=== PATIENT | female | born 1990 | race Hispanic/Latino ===

== ENCOUNTER 2018-03-01 15:37 | Emergency (ER) | payer OTHER, MEDICAID, SELFPAY ==
[2018-03-01 15:46] VITALS: BP 120/68; PULSE 80; RESP 18; TEMP 36.2; O2SAT 98; BMI 29.8
--- NOTE | 2018-03-01 16:42 | ED_ITS ---
HPI - Abdominal Pain <Roxanne Graham PA-C - Last Filed: 03/01/18 21:43> General Chief Complaint: Abdominal Pain Stated Complaint: BLEEDING Time Seen by Provider: 03/01/18 16:39 Source: patient Mode of arrival: ambulatory Limitations: no limitations History of Present Illness HPI narrative: This 27-year-old female comes in due to vaginal bleeding and abdominal pain today. She states that LMP was 01/21. She had positive tests at home on Sunday and Sunday. She states that she had some slight spotting yesterday which she thought was normal, but this became heavier last night and states blood was running down her leg this morning. No clots. She states bleeding has been about the same today. She states that along with this she has had pain in the pelvic area that is persistent, also some on her left side without specific exacerbating or alleviating features. She feels like the abdominal pain radiates to her back. She denies any vomiting or nausea , but states she has no appetite today and has not eaten. She denies any fever , urinary symptoms, or STD concerns. She denies any chest pain, dyspnea, extremity swelling or other new complaints on systems review aside from some increased constipation in the last 4 days though she did have a bowel movement yesterday. Related Data Home Medications Medication Instructions Recorded Confirmed No Known Home Medications 03/01/18 03/01/18 Allergies Allergy/AdvReac Type Severity Reaction Status Date / Time No Known Allergies Allergy Uncoded 03/01/18 15:55 Review of Systems <Roxanne Graham PA-C - Last Filed: 03/01/18 21:43> Review of Systems All systems reviewed & are unremarkable except as noted in HPI and below PFSH <Roxanne Graham PA-C - Last Filed: 03/01/18 21:43> Comment: no EtOH or street drugs Exam <ABHILASH Cage Last Filed: 03/01/18 21:43> Narrative Exam Narrative: GENERAL APPEARANCE: Patient sitting comfortably, in no distress. HEENT: PERRL, EOMI, no scleral icterus NECK: Supple LUNGS: Clear to auscultation bilaterally. HEART: Rate and rhythm regular, normal S1 and S2, no S3 or S4. ABDOMEN: Soft, nondistended, bowel sounds present x 4 quadrants, no masses palpable, no hepatosplenomegaly. Mild tenderness over the lower midline to left lower quadrants, moderate left CVAT. more tenderness over the suprapubic region without guarding or rebound EXTREMITIES: No edema, no cyanosis DERMATOLOGIC: No jaundice or exanthem : normal external genitalia. Normal appearing parous os, closed, with moderate dark blood and a few clots. On bimanual exam, she has localized tenderness over the left adnexa, no CMT NEUROLOGIC: Alert and oriented with normal speech and coordination Initial Vital Signs Initial Vital Signs: Vital Signs Temperature 97.2 F L 03/01/18 15:46 Pulse Rate 80 03/01/18 15:46 Respiratory Rate 18 03/01/18 15:46 Blood Pressure 120/68 03/01/18 15:46 Pulse Oximetry 98 03/01/18 15:46 <Madhavi Schrader DO - Last Filed: 03/03/18 08:10> Initial Vital Signs Initial Vital Signs: Vital Signs Temperature 97.2 F L 03/01/18 15:46 Pulse Rate 80 03/01/18 15:46 Respiratory Rate 18 03/01/18 15:46 Blood Pressure 120/68 03/01/18 15:46 Pulse Oximetry 98 03/01/18 15:46 Course <Roxanne Graham PA-C - Last Filed: 03/01/18 21:43> Additional Information: reviewed findings of negative testing, ovarian cyst on ultrasound correlating to pelvic tenderness on exam. She is feeling somewhat improved after ibuprofen, so will continue this at home and monitor over the weekend. 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 for follow-up appointment Orders Ordered: Discontinued Medications Ibuprofen (Advil) 800 mg PO NOW ONE Stop: 03/01/18 17:20 Last Admin: 03/01/18 17:25 Dose: 800 mg Vital Signs - 8 hr 03/01/18 15:46 03/01/18 17:42 03/01/18 18:57 Temperature 97.2 F L 98.0 F 97.5 F L Pulse Rate 80 84 80 Respiratory Rate 18 16 18 Blood Pressure 120/68 Blood Pressure [Left Arm] 128/66 139/72 Pulse Oximetry 98 100 100 <DO Hilary Ruiz Last Filed: 03/03/18 08:10> Orders Ordered: Discontinued Medications Ibuprofen (Advil) 800 mg PO NOW ONE Stop: 03/01/18 17:20 Last Admin: 03/01/18 17:25 Dose: 800 mg Vital Signs - 8 hr 03/01/18 15:46 03/01/18 17:42 03/01/18 18:57 Temperature 97.2 F L 98.0 F 97.5 F L Pulse Rate 80 84 80 Respiratory Rate 18 16 18 Blood Pressure 120/68 Blood Pressure [Left Arm] 128/66 139/72 Pulse Oximetry 98 100 100 MDM - Abdominal Pain <Roxanne Graham PA-C - Last Filed: 03/01/18 21:43> Lab Data Attestation: I reviewed the patient's lab results. Result diagrams: 03/01/18 17:27 03/01/18 17:27 Lab Results 03/01/18 03/01/18 03/01/18 Range/Units 17:27 17:27 17:27 WBC 7.6 (4.5-11.0) X10^3/uL RBC 4.42 (4.0-5.2) X10^6/uL Hgb 11.4 L (12.0-16.0) g/dL Hct 34.8 L (36-46) % MCV 78.6 L (80-100) fL MCH 25.7 L (26-34) PG MCHC 32.7 (30-36) % RDW 14.8 (11.6-14.8) % Plt Count 306 (150-400) X10^3/uL Neut % (Auto) 57.2 (50-75) % Lymph % (Auto) 35.0 (25-40) % [place] % (Auto) 6.2 (3-14) % Eos % (Auto) 1.3 L (2-4) % Baso % (Auto) 0.3 (0-2) % Neut # (Auto) 4300 (4024-9791) /uL Sodium 141 (137-145) mmol/L Potassium 4.2 (3.4-5.1) mmol/L Chloride 103 (98-107) mmol/L Carbon Dioxide 26 (22-32) mmol/L BUN 13 (7-17) mg/dL Creatinine 0.60 (0.52-1.04) mg/dL Estimated GFR > 60.0 (>60) mL/min BUN/Creatinine Ratio 21.7 (6-22) Glucose 99 (70-100) mg/dL Calcium 9.4 (8.4-10.2) mg/dL Total Bilirubin 0.2 (0.2-1.3) mg/dL AST 18 (14-36) IU/L ALT 25 (9-52) IU/L Alkaline Phosphatase 97 (38-126) U/L Total Protein 8.5 H (6.3-8.2) g/dL Albumin 4.6 (3.5-5.0) g/dL Globulin 3.9 (1.7-4.1) g/dL Albumin/Globulin Ratio 1.2 (1.0-2.8) Lipase 54 (23-300) U/L HCG, Quant < 2.39 mIU/mL Point of care testing: Point of Care Testing Test Results Negative Urine Dip Bedside Urine Glucose Negative Bedside Urine Bilirubin - Negative Bedside Urine Ketone - Negative Urine Specific [place] 1.020 Bedside Urine Occult Blood ++ Bedside Urine pH 6.0 Bedside Urine Protein - Negative Bedside Urine Urobilinogen - Negative Bedside Urine Nitrite - Negative Bedside Urine Leukocytes - Negative Esterase Imaging Data pelvic: Radiologist's impression: [address] [address] Ultrasound Report Signed Patient: Brennon Arellano#: [id number] : 1990Acct:[id number] Age/Sex: 27 / FDate of Service: 03/01/18 Loc: ED Accession Number: [id number] Procedure: pelvic complete Ordering Provider: Roxanne Graham P.A-C PROCEDURE: US PELVIC COMPLETE INDICATIONS: PAIN, BLEEDING; POSITIVE HOME TEST TECHNIQUE: Real-time scanning was performed of the pelvic organs, with image documentation. Additional endovaginal scanning was necessary due to incomplete visualization of the adnexal and endometrial structures by transabdominal scanning. COMPARISON: [facility], PELVIC COMPLETE, 04/27/2010, 14:55. FINDINGS: Transabdominal scanning: Limited scanning through the kidneys shows no hydronephrosis. No pathologic free abdominal or pelvic fluid. Endovaginal scanning: Uterus: Uterus is normal in size at 9.3 x 5.0 x 6.4 cm. The endometrium measures 9 mm in combined thickness. Ovaries: Right ovary measures 3.2 x 1.5 1.9 cm and is unremarkable. Left ovary measures 3.4 x 2.0 x 2.2 cm and there is a complex cystic lesion measuring 1.7 x 1.4 x 1.3 cm with internal echoes, presumably hemorrhagic or involuting physiologic cyst. IMPRESSION: No definite intrauterine identified. Technically, early IUP or ectopic cannot be excluded at this time. Please correlate clinically and with serial beta hCG values and if necessary, a repeat pelvic ultrasound one week could be performed. Presumed physiologic hemorrhagic or involuting left ovarian cyst Dictated by: Abhijeet Martinez M.D. on 03/01/2018 at 18:36 Approved by: Abhijeet Martinez M.D. on 03/01/2018 at <Madhavi Schrader DO - Last Filed: 03/03/18 08:10> Lab Data Lab Results 03/01/18 03/01/18 03/01/18 Range/Units 17:27 17:27 17:27 WBC 7.6 (4.5-11.0) X10^3/uL RBC 4.42 (4.0-5.2) X10^6/uL Hgb 11.4 L (12.0-16.0) g/dL Hct 34.8 L (36-46) % MCV 78.6 L (80-100) fL MCH 25.7 L (26-34) PG MCHC 32.7 (30-36) % RDW 14.8 (11.6-14.8) % Plt Count 306 (150-400) X10^3/uL Neut % (Auto) 57.2 (50-75) % Lymph % (Auto) 35.0 (25-40) % [place] % (Auto) 6.2 (3-14) % Eos % (Auto) 1.3 L (2-4) % Baso % (Auto) 0.3 (0-2) % Neut # (Auto) 4300 (5043-6243) /uL Sodium 141 (137-145) mmol/L Potassium 4.2 (3.4-5.1) mmol/L Chloride 103 (98-107) mmol/L Carbon Dioxide 26 (22-32) mmol/L BUN 13 (7-17) mg/dL Creatinine 0.60 (0.52-1.04) mg/dL Estimated GFR > 60.0 (>60) mL/min BUN/Creatinine Ratio 21.7 (6-22) Glucose 99 (70-100) mg/dL Calcium 9.4 (8.4-10.2) mg/dL Total Bilirubin 0.2 (0.2-1.3) mg/dL AST 18 (14-36) IU/L ALT 25 (9-52) IU/L Alkaline Phosphatase 97 (38-126) U/L Total Protein 8.5 H (6.3-8.2) g/dL Albumin 4.6 (3.5-5.0) g/dL Globulin 3.9 (1.7-4.1) g/dL Albumin/Globulin Ratio 1.2 (1.0-2.8) Lipase 54 (23-300) U/L HCG, Quant < 2.39 mIU/mL Point of care testing: Point of Care Testing Test Results Negative Urine Dip Bedside Urine Glucose Negative Bedside Urine Bilirubin - Negative Bedside Urine Ketone - Negative Urine Specific [place] 1.020 Bedside Urine Occult Blood ++ Bedside Urine pH 6.0 Bedside Urine Protein - Negative Bedside Urine Urobilinogen - Negative Bedside Urine Nitrite - Negative Bedside Urine Leukocytes - Negative Esterase Discharge Plan Departure Patient Disposition: Home Clinical Impression: Ovarian cyst, Complete miscarriage Discharge Date/Time: 03/01/18 19:10 Interventions: ED Discharge Assessment Last Done: 03/01/18 19:10 Instructions: DI for Miscarriage, DI for Ovarian Cyst Activity Restrictions/Additional Instructions: the source of your left-sided pain appears to be an ovarian cyst which is visible on your ultrasound and the site where you are tender on exam. Please continue 800 mg of ibuprofen (for of your [id number]-srhhsxe tablets) every 8 hr for pain, and you can also add Tylenol as needed. Your blood and urine tests were negative here today, but given your positive home tests earlier this week, it sounds like you may have had a very early miscarriage as well. You should return as we talked about if you have any acutely worsening pain, or new symptoms such as vomiting or fever over the weekend. Otherwise, please call [facility] on Sunday to arrange for follow up so that your cyst and pain can be monitored. Let them know that we referred you after emergency room visit Prescriptions: No Action No Known Home Medications RF: 0 Referrals: Hyacinth Foster MD [Physician] - <Madhavi Schrader DO - Last Filed: 03/03/18 08:10> Cosign ED Attending Cosignature Attestation: I was immediately available in the department for consultation. This documentation has been reviewed and I agree with plan. Supervised by Madhavi Schrader DO
--- NOTE | 2018-03-01 17:19 | DI.US.S_ITS ---
PROCEDURE: US PELVIC COMPLETE INDICATIONS: PAIN, BLEEDING; POSITIVE HOME TEST TECHNIQUE: Real-time scanning was performed of the pelvic organs, with image documentation. Additional endovaginal scanning was necessary due to incomplete visualization of the adnexal and endometrial structures by transabdominal scanning. COMPARISON: [facility], , PELVIC COMPLETE, 04/27/2010, 14:55. FINDINGS: Transabdominal scanning: Limited scanning through the kidneys shows no hydronephrosis. No pathologic free abdominal or pelvic fluid. Endovaginal scanning: Uterus: Uterus is normal in size at 9.3 x 5.0 x 6.4 cm. The endometrium measures 9 mm in combined thickness. Ovaries: Right ovary measures 3.2 x 1.5 1.9 cm and is unremarkable. Left ovary measures 3.4 x 2.0 x 2.2 cm and there is a complex cystic lesion measuring 1.7 x 1.4 x 1.3 cm with internal echoes, presumably hemorrhagic or involuting physiologic cyst. IMPRESSION: No definite intrauterine identified. Technically, early IUP or ectopic cannot be excluded at this time. Please correlate clinically and with serial beta hCG values and if necessary, a repeat pelvic ultrasound one week could be performed. Presumed physiologic hemorrhagic or involuting left ovarian cyst Dictated by: Abhijeet Martinez M.D. on 03/01/2018 at 18:36 Approved by: Abhijeet Martinez M.D. on 03/01/2018 at 18:44
[2018-03-01] MEDS: IBUPROFEN 400 MG TABLET 800 MG PO (17:25)
[2018-03-01 17:34] LABS: Add Manual Diff / Slide Review NO; Basophils Percent Auto 0.3 % (0-2); Eosinophils Percent Auto 1.3 % (2-4); Hematocrit 34.8 % (36-46); Hemoglobin 11.4 g/dL (12.0-16.0); Mean Corpuscular HGB Conc 32.7 % (30-36); Mean Corpuscular Hemoglobin 25.7 PG (26-34); Mean Corpuscular Volume 78.6 fL (80-100); Monocytes Percent Auto 6.2 % (3-14); Neutrophils Absolute Auto 4300 /uL (3000-5900); Neutrophils Percent Auto 57.2 % (50-75); Platelet Count 306 X10^3/uL (150-400); Red Blood Cell Count 4.42 X10^6/uL (4.0-5.2); Red Cell Distribution Width 14.8 % (11.6-14.8); White Blood Cell Count 7.6 X10^3/uL (4.5-11.0)
[2018-03-01 17:42] VITALS: BP 128/66; PULSE 84; RESP 16; TEMP 36.7; O2SAT 100
[2018-03-01 17:47] LABS: Alanine Aminotransferase 25 IU/L (9-52); Albumin 4.6 g/dL (3.5-5.0); Albumin Globulin Ratio 1.2 (1.0-2.8); Alkaline Phosphatase 97 U/L (38-126); Aspartate Aminotransferase 18 IU/L (14-36); BUN Creatinine Ratio 21.7 (6-22); Bilirubin Total 0.2 mg/dL (0.2-1.3); Blood Urea Nitrogen 13 mg/dL (7-17); Calcium 9.4 mg/dL (8.4-10.2); Carbon Dioxide 26 mmol/L (22-32); Chloride 103 mmol/L (98-107); Estimated Glomerular Filt Rate > 60.0 mL/min (>60); Globulin 3.9 g/dL (1.7-4.1); Glucose 99 mg/dL (70-100); HEMOLYSIS < 15 (0-50); Lipase 54 U/L (23-300); Potassium 4.2 mmol/L (3.4-5.1); Sodium 141 mmol/L (137-145); Total Protein 8.5 g/dL (6.3-8.2)
[2018-03-01 18:15] LABS: HCG Quantitative /Beta subunit < 2.39 mIU/mL
[2018-03-01 18:57] VITALS: BP 139/72; PULSE 80; RESP 18; TEMP 36.4; O2SAT 100
== END 2018-03-01 19:10 | disposition home or self-care (01) ==
PROVIDERS: Emergency Provider Internal Medicine; Family Provider Family Medicine; PCP Family Medicine
DX: N83.202 Unspecified ovarian cyst, left side (principal); O03.9 Complete or unspecified spontaneous abortion without complication
CPT/HCPCS: 76830; 76856; 80053; 81003; 81025; 83690; 84702; 85025; 99283; 99284

== ENCOUNTER → 2019-09-12 14:30 | Outpatient (CLI) | payer OTHER, MEDICAID, SELFPAY ==
[2019-09-12 15:11] LABS: Add Manual Diff / Slide Review NO; Basophils Absolute Auto 0 /uL (0-100); Eosinophils Absolute Auto 0 /uL (0-450); Eosinophils Percent Auto 0.5 % (2-4); Hematocrit 34.8 % (36-46); Hemoglobin 11.2 g/dL (12.0-16.0); Lymphocytes Absolute Auto 1900 /uL (1100-4500); Lymphocytes Percent Auto 29.9 % (25-40); Mean Corpuscular HGB Conc 32.2 % (30-36); Mean Corpuscular Hemoglobin 25.9 PG (26-34); Mean Corpuscular Volume 80.5 fL (80-100); Monocytes Absolute Auto 500 /uL (0-900); Monocytes Percent Auto 7.2 % (3-14); Neutrophils Absolute Auto 4100 /uL (1500-7000); Neutrophils Percent Auto 62.4 % (50-75); Platelet Count 261 X10^3/uL (150-400); Red Blood Cell Count 4.32 X10^6/uL (4.0-5.2); Red Cell Distribution Width 13.5 % (11.6-14.8); White Blood Cell Count 6.5 X10^3/uL (4.5-11.0)
[2019-09-12 15:31] LABS: Cholesterol 282 mg/dL (140-199); HDL Cholesterol 66 mg/dL (40-60); LDL Cholesterol Calculated 161 mg/dL (<100); Triglycerides 274 mg/dL (35-150)
[2019-09-12 21:04] LABS: Urine N gonorrhoeae NOT DETECTED
[2019-09-12 21:09] LABS: Urine Chlamydia NOT DETECTED
[2019-09-13 16:07] LABS: RPR Screen Non Reactive (Non Reactive); Varicella IgG Antibody <135 index (Immune >165)
[2019-09-15 21:30] LABS: Hepatitis B Surface Antigen NEGATIVE s/c (NEGATIVE); Rubella Antibody IgG 43.4 IU/mL (>15)
[2019-09-15 21:45] LABS: HIV 1 & 2 Ab/Ag 4th Gen Combo NEGATIVE (NEGATIVE); Hep C Virus Ab w/Reflex Quant NEGATIVE s/c (NEGATIVE)
== END ==
PROVIDERS: Family Provider Family Medicine; PCP Family Medicine; Referring Provider Specialist; Visit Provider Specialist
DX: Z34.81 Encounter for supervision of other normal pregnancy, first trimester (principal); E78.00 Pure hypercholesterolemia, unspecified; Z3A.09 9 weeks gestation of pregnancy
CPT/HCPCS: 36415; 80055; 80061; 86787; 86803; 86850; 86900; 86901; 87389; 87491; 87591

== ENCOUNTER → 2019-11-10 11:36 | Outpatient (CLI) | payer OTHER, MEDICAID, SELFPAY ==
[2019-11-10 13:09] LABS: Appearance Urine UA CLEAR; Bilirubin Urine UA NEGATIVE (NEGATIVE); Color Urine UA YELLOW; Glucose Urine UA NEGATIVE (Negative); Ketones Urine UA NEGATIVE (NEGATIVE); Leukocyte Esterase Urine UA 2+ (NEGATIVE); Nitrite Urine UA NEGATIVE (Negative); Occult Blood Urine UA TRACE-LYSED (Negative); Protein Urine UA NEGATIVE (Negative); Specific Gravity Urine UA 1.015 (1.000-1.035); Urobilinogen Urine UA 0.2 E.U./dL (0.2)
[2019-11-10 13:12] LABS: RBC Urine 0-1/HPF (0-5/HPF); Renal Epithelial Cells Urine 0-1/HPF (0-1/HPF); Squamous Epithelial Cell Urine 5-10 /HPF (0-5/HPF); WBC Urine 5-10/HPF (0-5/HPF)
[2019-11-10 13:13] LABS: Amorphous Sediment Urine 1+; Bacteria Urine Occasional (0-1)
[2019-11-10 13:26] LABS: Hemoglobin A1C% w Est Avg Glu 5.4 % (4.0-6.0)
[2019-11-12 20:43] LABS: AFP, Serum 54.3 ng/mL (.); Estriol, Free 1.81 ng/mL (.); Inhibin A, MoM 0.51 (.); Maternal Ethnicity Other (.); Maternal Weight 189 lbs (.); Number of Fetuses No (.); OSBR Risk 1 IN 2331 (.); Results Report (.); Test Results *Screen Negative* (.); hCG, Serum 28865 mIU/mL (.)
== END ==
PROVIDERS: Family Provider Family Medicine; PCP Family Medicine; Referring Provider Specialist; Visit Provider Specialist
DX: Z34.82 Encounter for supervision of other normal pregnancy, second trimester (principal); E78.1 Pure hyperglyceridemia
CPT/HCPCS: 36415; 81003; 81015; 82105; 82677; 83036; 84702; 86336; 87086

== ENCOUNTER → 2019-11-26 09:09 | Outpatient (CLI) | payer OTHER, MEDICAID, SELFPAY ==
--- NOTE | 2019-11-26 09:11 | DI.US.S_ITS ---
PROCEDURE: US OB >= 14 WEEKS FETUS INDICATIONS: ANATOMY OUTSIDE/PRIOR DATING DATA: Last menstrual period (LMP): 07/09/2019. LMP-based estimated date of delivery (LEONIDES): 04/14/2020 . First dating scan (date and location): 09/12/2019 . Estimated date of delivery (LEONIDES) from first dating scan: 04/18/2020 . TECHNIQUE: Real-time scanning was performed of the fetus, with image documentation and biometric measurements. Endovaginal scanning: No COMPARISON: [facility], , OB >= 14 WEEKS FETUS, 11/10/2019, 11:32. FINDINGS: General: A single living intrauterine gestation is present. Presentation: Vertex. Placenta: Placental position is anterior , without previa. Amniotic fluid index: 16.8 cm, normal range is 5-24 cm. heart rate: 155 beats per minute. Maternal cervical canal: 3.8 cm long. Normal lower limit is 2.5 cm. 20 weeks 6 days biometrics: Biparietal diameter: 20 weeks 6 days Head circumference: 20 weeks 4 days Abdominal circumference: 20 weeks 4 days Femur length: 19 weeks 6 days Estimated gestational age from initial scan: 19 weeks 3 days Composite gestational age from present scan: 20 weeks 3 days Estimated weight and percentile: 346 g; 91st percentile Measurement variability for biometric dating: +/- 7 days from 14 weeks to 15 weeks 6 days gestation, +/- 10 days from 16 weeks to 21 weeks 6 days gestation, +/- 2 weeks from 22 weeks to 27 weeks 6 days gestation, +/- 3 weeks for 28 weeks gestation or later. weight reference: 4500 g or EFW >90/95% is considered macrosomia or large for gestational age. EFW <10% is small for gestational age. EFW 5% or less is considered intra-uterine growth restriction. Anatomic survey: Neuro: Ventricles are non-dilated at less than 10 mm. Cisterna magna is normal at 3-11 mm. Cerebellum is normal in size and morphology. Nuchal skin fold: Normal at less than 6 mm between 14-21 weeks gestational age. Face: Nose and lips, facial profile are normal. Spine: No evidence for spina bifida. Heart: 4-chambered heart is present, with normal LVOT. RVOT suboptimally visualized. Diaphragm: Diaphragm is intact. Stomach: Left-sided stomach is present. Kidneys: No hydronephrosis. Normal is less than 5 mm in 2nd trimester, less than 7 mm in 3rd trimester. Cord: 3-vessel cord has orthotopic insertion. Bladder: Normal in size. Extremities: All 4 extremities identified. IMPRESSION: 1. Single living IUP redemonstrated and interval growth is upper limits of normal. 2. RVOT not well visualized; otherwise normal anatomic survey. Dictated by: Blaine Matthews [facility] Interpreted: Abhijeet Martinez MD on 11/26/2019 at 10:20 Approved by: Abhijeet Martinez M.D. on 11/27/2019 at 11:43
== END ==
PROVIDERS: Family Provider Family Medicine; PCP Family Medicine; Referring Provider Specialist; Visit Provider Specialist
DX: Z34.82 Encounter for supervision of other normal pregnancy, second trimester (principal); Z3A.20 20 weeks gestation of pregnancy
CPT/HCPCS: 76811

== ENCOUNTER → 2020-03-17 17:15 | Outpatient (CLI) | payer OTHER, MEDICAID, SELFPAY ==
[2020-03-18 19:11] LABS: Strep Grp B PCR NEG for Grp B Strep
== END ==
PROVIDERS: Family Provider Family Medicine; PCP Family Medicine; Visit Provider Specialist
DX: Z34.83 Encounter for supervision of other normal pregnancy, third trimester (principal); Z3A.36 36 weeks gestation of pregnancy
CPT/HCPCS: 87653

== ENCOUNTER 2020-04-12 09:10 | Inpatient (IN) | payer OTHER, MEDICAID, SELFPAY ==
[2020-04-12 10:52] VITALS: BP 123/71
[2020-04-12 11:01] LABS: Add Manual Diff / Slide Review NO; Basophils Absolute Auto 0 /uL (0-100); Basophils Percent Auto 0.4 % (0-2); Eosinophils Absolute Auto 100 /uL (0-450); Eosinophils Percent Auto 0.7 % (2-4); Hematocrit 35.9 % (36-46); Hemoglobin 11.7 g/dL (12.0-16.0); Lymphocytes Absolute Auto 2100 /uL (1100-4500); Lymphocytes Percent Auto 20.3 % (25-40); Mean Corpuscular HGB Conc 32.7 % (30-36); Mean Corpuscular Hemoglobin 25.8 PG (26-34); Mean Corpuscular Volume 78.9 fL (80-100); Monocytes Absolute Auto 600 /uL (0-900); Monocytes Percent Auto 5.8 % (3-14); Neutrophils Absolute Auto 7500 /uL (1500-7000); Neutrophils Percent Auto 72.8 % (50-75); Platelet Count 195 X10^3/uL (150-400); Red Blood Cell Count 4.55 X10^6/uL (4.0-5.2); Red Cell Distribution Width 16.2 % (11.6-14.8); White Blood Cell Count 10.4 X10^3/uL (4.5-11.0)
[2020-04-12 11:19] LABS: COVID19 -Nasal RAPID Negative (Negative)
--- NOTE | 2020-04-12 14:07 | P.HPOB_ITS ---
OB HPI Date/Time Date of admission: 04/12/20 Date Patient Seen: 04/12/20 Time Patient Seen: 10:00 History of Present Condition Chief complaint: NST : 5 Para: 3 Estimated Date of Delivery: 04/14/20 Estimated Gestational Age (weeks): 39 Narrative: Brennon Anna is a 29 year old female admitted in early l abor after spontaneous rupture membranes Evaluation Evaluation Baseline heart rate: 130 Variability: Moderate (11-25) monitor accelerations: Present monitor decelerations: Absent Contraction Frequency (minutes): 8 Uterine Contraction Intensity: Moderate Category of Tracing: Reactive Laboratory results: Laboratory Tests 04/12/20 04/12/20 04/12/20 10:10 10:45 10:45 WBC 10.4 RBC 4.55 Hgb 11.7 L Hct 35.9 L MCV 78.9 L MCH 25.8 L MCHC 32.7 RDW 16.2 H Plt Count 195 Neut % (Auto) 72.8 Lymph % (Auto) 20.3 L [place] % (Auto) 5.8 Eos % (Auto) 0.7 L Baso % (Auto) 0.4 Neut # (Auto) 7500 H Lymph # (Auto) 2100 [place] # (Auto) 600 Eos # (Auto) 100 Baso # (Auto) 0 COVID-19 PCR Negative Blood Type O Positive Antibody Screen Negative Non-invasive Membranes Rupture Test: positive PFSH Medical History (Updated 09/09/19 @ 13:06 by Shani Bennett RN) Healthy female Hypercholesterolemia (spontaneous vaginal delivery) Surgical History (Updated 09/09/19 @ 13:11 by Shani Bennett RN) [place] teeth extracted (~2018) Family History (Updated 09/09/19 @ 13:06 by Shani Bennett RN) Grandmother Hypertension Cancer Mother Hyperlipidemia Father Unknown whether patient has any health problems Family estrangement Grandfather Meniere disease Family/Other Throat cancer Social History marital status: number of children: 3 household members: spouse and children pets and animals: Yes education level: high school (some HS) occupational status: employed current occupational exposures/hazards: No Previous occupational history: House Keeping special bulmaro needs: No Smoking Status: Never smoker second hand exposure: No alcohol intake: former (pre- : social) substance use type: does not use Meds Home Medications and Allergies Home Medications Medication Instructions Recorded Confirmed Type prenat.vits,allen,wne-hrqf-bvrso 1 tab PO DAILY 09/09/19 04/12/20 History Allergies Allergy/AdvReac Type Severity Reaction Status Date / Time No Known Allergies Allergy Verified 04/12/20 10:22 Review of Systems Review of Systems Narrative: Patient denies headaches, scotomata, epigastric pain. Good movement. Began leaking clear fluid at 3:30 a.m. with mild contractions. ROS: Yes All systems reviewed with the patient and are negative except as otherwise documented Exam Vital Signs (past 8 hours): - Blood pressure 123/71, pulse 78, temperature 36.5? 04/12/20 10:52 Blood Pressure 123/71 Narrative Exam Narrative: HEENT exam within normal limits. Lungs are clear to auscultation percussion. Heart is regular rate and rhythm no S3-S4 murmurs. Abdomen is gravid. Fetus is vertex. Extremities without edema and nontender. Patient's blood type is O positive. She is rubella immune. Group B strep culture negative. She received Tdap in the 3rd trimester. Objective Labs Result Diagrams: 04/12/20 10:45 Labs: Laboratory Results - last 24 hr 04/12/20 04/12/20 04/12/20 10:10 10:45 10:45 WBC 10.4 RBC 4.55 Hgb 11.7 L Hct 35.9 L MCV 78.9 L MCH 25.8 L MCHC 32.7 RDW 16.2 H Plt Count 195 Neut % (Auto) 72.8 Lymph % (Auto) 20.3 L [place] % (Auto) 5.8 Eos % (Auto) 0.7 L Baso % (Auto) 0.4 Neut # (Auto) 7500 H Lymph # (Auto) 2100 [place] # (Auto) 600 Eos # (Auto) 100 Baso # (Auto) 0 COVID-19 PCR Negative Blood Type O Positive Antibody Screen Negative Assessment and Plan Assessment and Plan Assessment and Plan narrative: Term in early labor. Anticipate vaginal delivery.
[2020-04-12] MEDS: OXYTOCIN 10 UNIT/ML VIAL 20 UNIT (18:52)
--- NOTE | 2020-04-12 19:06 | P.PCNOB_ITS ---
Labor & Delivery Delivery date: 04/12/20 Delivery monitor: external FHT and external uterine Route of delivery: L&D Laceration Description: None Estimated blood loss (mL): 100 Anesthesia type: None Narrative: Patient arrived on Labor and delivery after spontaneous rupture membranes at 3:30 a.m.. She began having contractions. heart tones category 1 to category 2 throughout labor. Patient progressed to complete dilation and pushed effectively with delivery of a viable male infant over an intact perineum. The baby was placed directly on maternal abdomen. There was a nuchal cord x1 that was released. After the cord stopped pulsating the cord was clamped, cut, and cord bloods obtained. The placenta delivered spontaneously, intact, with 3 vessels. There were no cervical, vaginal, or perineal tears. Both infant mother doing well. [place] Baby 1: Infant gender: Male Presentation: vertex position: Right Occiput Anterior Placenta delivery description: Spontaneous cord vessel description: Nuchal Cord score (1 min): 9 score (5 min): 9 Plan for aftercare: Routine care
[2020-04-12] MEDS: IBUPROFEN 600 MG TABLET PO (19:28)
[2020-04-12] MEDS: LANOLIN OINT 7 GM 1 APPLIC TOP (19:29)
[2020-04-12] MEDS: DERMOPLAST SPRAY 20% 60 ML 1 SPRAY TOP (19:30)
[2020-04-13] MEDS: IBUPROFEN 600 MG TABLET PO ×2 (02:07→09:15)
[2020-04-13 06:59] LABS: Add Manual Diff / Slide Review NO; Basophils Absolute Auto 0 /uL (0-100); Basophils Percent Auto 0.3 % (0-2); Eosinophils Absolute Auto 100 /uL (0-450); Eosinophils Percent Auto 0.6 % (2-4); Hematocrit 34.1 % (36-46); Hemoglobin 10.8 g/dL (12.0-16.0); Lymphocytes Absolute Auto 2300 /uL (1100-4500); Lymphocytes Percent Auto 20.8 % (25-40); Mean Corpuscular HGB Conc 31.8 % (30-36); Mean Corpuscular Hemoglobin 25.1 PG (26-34); Monocytes Absolute Auto 600 /uL (0-900); Monocytes Percent Auto 5.7 % (3-14); Neutrophils Absolute Auto 8200 /uL (1500-7000); Neutrophils Percent Auto 72.6 % (50-75); Platelet Count 184 X10^3/uL (150-400); Red Blood Cell Count 4.32 X10^6/uL (4.0-5.2); White Blood Cell Count 11.2 X10^3/uL (4.5-11.0)
[2020-04-13 09:15] VITALS: TEMP 36.3
--- NOTE | 2020-04-13 12:47 | P.DS_ITS ---
Discharge Providers Provider Date of admission: 04/12/20 09:10 Discharge Date: 04/13/20 Primary care physician: Padmini Lovett MD Consults: 04/13/20 19:04 Consult to Other Spatial Scientist Routine Comment: Discharge provider: Hyacinth Foster MD Summary Hospital Course Date Patient Seen: 04/13/20 Time Patient Seen: 12:47 Procedures: Spontaneous vaginal deliver Hospital Course: Patient arrived in Labor and delivery after spontaneous rupture membranes and progressed to active labor. She had a spontaneous vaginal delivery of a viable male infant weighing 8 lb 3 oz. She had no tears. She is urinating and ambulating well. No headaches, scotomata, epigastric pain. She is breast- feeding without difficulty. Peripartum Data Delivery Method: Natural Vaginal Laceration Description: None Procedures: Spontaneous vaginal delivery complications: none [place] 1: Gender: Male Disposition of : home Discharge Diagnosis (1) Vaginal delivery: Status: Acute Status at Discharge Cognitive/behavioral status at discharge: oriented Functional status at discharge: independent ambulation Overall status at discharge: patient is progressing back to baseline Time Spent with Patient Time attestation: Total time spent providing and/or coordinating discharge services: Time spent: Less than 30 minutes Objective Labs Result Diagrams: 04/13/20 06:50 Labs: Laboratory Results - last 24 hr 04/13/20 06:50 WBC 11.2 H RBC 4.32 Hgb 10.8 L Hct 34.1 L MCV 79.0 L MCH 25.1 L MCHC 31.8 RDW 16.0 H Plt Count 184 Neut % (Auto) 72.6 Lymph % (Auto) 20.8 L [place] % (Auto) 5.7 Eos % (Auto) 0.6 L Baso % (Auto) 0.3 Neut # (Auto) 8200 H Lymph # (Auto) 2300 [place] # (Auto) 600 Eos # (Auto) 100 Baso # (Auto) 0 Exam Vital Signs (past 8 hours): - Blood pressure 124/77, pulse 90, temperature 97.2? 04/13/20 09:15 Temperature 97.3 F L Narrative Exam Narrative: Abdomen is soft, nontender. Uterus is firm, at U, nontender. Appropriate lochia. Extremities without edema and nontender. Patient is Rh positive, rubella immune, and received the Tdap in the 3rd trimester. Discharge Plan Discharge Plan Patient Disposition: Home Discharge orders & Medications Prescriptions: New ibuprofen 600 mg Tablet 600 mg PO Q6HR PRN (Reason: Pain, Mild (1-3)) Qty: 30 RF: 0 Continued prenat.vits,allen,sgr-olsf-pwihj Tablet 1 tab PO DAILY RF: 0 Follow up/Referrals: Padmini Lovett MD [Primary Care Provider] - Hyacinth Foster MD [Physician] - 6 Weeks Diet/Activity/Treatments Diet: Regular Activity: Nothing in vagina for 6 weeks Skin/Wound/Dressing Care Report to your healthcare provider any signs of infection, such as:: chills, fever and increased pain Discharge Data Primary Care Provider: Padmini Lovett
[2020-04-13 14:04] VITALS: BP 124/77; PULSE 90; RESP 17; TEMP 36.2
== END 2020-04-13 12:35 | disposition home or self-care (01) | DRG 560 ==
PROVIDERS: Admitting Provider Specialist; Family Provider Family Medicine; PCP Family Medicine; Referring Provider Specialist; Visit Provider Specialist
DX: O42.02 Full-term premature rupture of membranes, onset of labor within 24 hours of rupture (principal); Z3A.39 39 weeks gestation of pregnancy; Z37.0 Single live birth; O69.81X0 Labor and delivery complicated by cord around neck, without compression, not applicable or unspecified; Z11.59 Encounter for screening for other viral diseases
CPT/HCPCS: 36415; 59050; 59409; 84112; 85025; 86850; 86900; 86901; 87635; G0379; J2590

== ENCOUNTER → 2021-06-08 09:24 | Outpatient (CLI) | payer OTHER, MEDICAID, SELFPAY ==
[2021-06-08 19:09] LABS: Add Manual Diff / Slide Review NO; Basophils Absolute Auto 0 /uL (0-100); Basophils Percent Auto 0.9 % (0-2); Eosinophils Absolute Auto 100 /uL (0-450); Eosinophils Percent Auto 1.2 % (2-4); Hematocrit 34.4 % (36-46); Hemoglobin 11.4 g/dL (12.0-16.0); Lymphocytes Absolute Auto 2000 /uL (1100-4500); Lymphocytes Percent Auto 42.1 % (25-40); Mean Corpuscular Hemoglobin 26.2 PG (26-34); Mean Corpuscular Volume 79.4 fL (80-100); Monocytes Absolute Auto 300 /uL (0-900); Monocytes Percent Auto 6.4 % (3-14); Neutrophils Absolute Auto 2300 /uL (1500-7000); Neutrophils Percent Auto 49.4 % (50-75); Platelet Count 217 X10^3/uL (150-400); Red Blood Cell Count 4.34 X10^6/uL (4.0-5.2); Red Cell Distribution Width 14.8 % (11.6-14.8); White Blood Cell Count 4.7 X10^3/uL (4.5-11.0)
[2021-06-08 19:13] LABS: Alanine Aminotransferase 20 IU/L (<35); Albumin 4.2 g/dL (3.5-5.0); Albumin Globulin Ratio 1.1 (1.0-2.8); Alkaline Phosphatase 84 U/L (38-126); Aspartate Aminotransferase 22 IU/L (14-36); BUN Creatinine Ratio 30.9 (6-22); Bilirubin Total 0.4 mg/dL (0.2-1.3); Blood Urea Nitrogen 17 mg/dL (7-17); Calcium 9.5 mg/dL (8.4-10.2); Carbon Dioxide 28 mmol/L (22-32); Chloride 105 mmol/L (98-107); Cholesterol 312 mg/dL (140-199); Estimated Glomerular Filt Rate > 60.0 mL/min (>60); Globulin 3.9 g/dL (1.7-4.1); Glucose 101 mg/dL (70-100); HDL Cholesterol 50 mg/dL (40-60); HEMOLYSIS < 15 (0-50); LDL Cholesterol Calculated 203 mg/dL (<100); Sodium 137 mmol/L (137-145); Total Protein 8.1 g/dL (6.3-8.2); Triglycerides 296 mg/dL (35-150)
[2021-06-08 19:16] LABS: Hemoglobin A1C% w Est Avg Glu 5.5 % (4.0-6.0)
[2021-06-08 19:44] LABS: TSH w/ Reflex to FT4 3.27 uIU/mL (0.47-4.68)
== END ==
PROVIDERS: Family Provider Family Medicine; PCP Family Medicine; Visit Provider Physician Assistant
DX: E78.00 Pure hypercholesterolemia, unspecified (principal); G43.909 Migraine, unspecified, not intractable, without status migrainosus; Z83.3 Family history of diabetes mellitus
CPT/HCPCS: 80053; 80061; 83036; 84443; 85025

== ENCOUNTER 2022-03-07 21:29 | Emergency (ER) | payer OTHER, MEDICAID, SELFPAY ==
[2022-03-07 21:34] VITALS: BP 141/81; PULSE 97; RESP 20; TEMP 36.1; O2SAT 98; BMI 31.7
[2022-03-07 22:19] LABS: Alanine Aminotransferase 24 IU/L (<35); Albumin 4.6 g/dL (3.5-5.0); Albumin Globulin Ratio 1.1 (1.0-2.8); Alkaline Phosphatase 90 U/L (38-126); Aspartate Aminotransferase 19 IU/L (14-36); BUN Creatinine Ratio 24.5 (6-22); Bilirubin Total 0.2 mg/dL (0.2-1.3); Blood Urea Nitrogen 13 mg/dL (7-17); Calcium 9.4 mg/dL (8.4-10.2); Carbon Dioxide 21 mmol/L (22-32); Chloride 104 mmol/L (98-107); Estimated Glomerular Filt Rate > 60 mL/min (>60); Globulin 4.3 g/dL (1.7-4.1); Glucose 177 mg/dL (70-100); HEMOLYSIS < 15 (0-50); Potassium 3.5 mmol/L (3.4-5.1); Sodium 137 mmol/L (137-145); Total Protein 8.9 g/dL (6.3-8.2)
[2022-03-07 22:35] LABS: Add Manual Diff / Slide Review NO; Basophils Absolute Auto 0 /uL (0-100); Basophils Percent Auto 0.4 % (0-2); Eosinophils Absolute Auto 100 /uL (0-450); Eosinophils Percent Auto 1.5 % (2-4); Hematocrit 35.2 % (36-46); Hemoglobin 11.7 g/dL (12.0-16.0); Lymphocytes Absolute Auto 2300 /uL (1100-4500); Lymphocytes Percent Auto 25.3 % (25-40); Mean Corpuscular HGB Conc 33.1 % (30-36); Mean Corpuscular Hemoglobin 25.8 PG (26-34); Mean Corpuscular Volume 77.7 fL (80-100); Monocytes Absolute Auto 400 /uL (0-900); Monocytes Percent Auto 4.5 % (3-14); Neutrophils Absolute Auto 6200 /uL (1500-7000); Neutrophils Percent Auto 68.3 % (50-75); Platelet Count 247 X10^3/uL (150-400); Red Blood Cell Count 4.53 X10^6/uL (4.0-5.2); Red Cell Distribution Width 14.5 % (11.6-14.8)
[2022-03-08 03:17] VITALS: BP 125/80; PULSE 80; RESP 20; O2SAT 98
--- NOTE | 2022-03-08 04:07 | ED_ITS ---
HPI - Recheck/Abnormal Lab/Rx General Chief Complaint: Recheck/Abnormal Lab/Rx Stated Complaint: abnormal labs, sent by MD Time Seen by Provider: 03/08/22 03:49 Source: patient Mode of arrival: Ambulatory History of Present Illness HPI narrative: Patient is a 31-year-old female who presents with dizziness today. She says she woke up she will to little dizzy lightheaded felt like she might pass out but she did not. She denies any chest pain or palpitations. She says that her menstrual cycles have been heavier than normal lately lasting about 10 days instead of 5 days is the. She says that she does not report any worsening bleeding today she has no abdominal pain nausea vomiting. She denies any fever chills. She wanted PCP because she was having increased dizziness as she did check a hemoglobin which was 7.4. Thought to be the cause of her dizziness this sent to the ED for further evaluation. She has actually had blood work that has come back and hemoglobin 11.7 with hematocrit of 35.2. She denies any rectal bleeding. She is not short of breath with exertion. Related Data Allergies Allergy/AdvReac Type Severity Reaction Status Date / Time No Known Allergies Allergy Verified 03/07/22 16:43 sumatriptan AdvReac Unknown felt Verified 03/07/22 16:43 drunk, swallowing difficulty Review of Systems Review of Systems Narrative: GENERAL: Denies chills, fatigue, malaise, fever, sweats, travel HEENT: Denies sinus pain, ear pain, sore throat, difficulty swallowing, neck pain RESPIRATORY: Denies dyspnea, cough, wheezing, hemoptysis, sputum. CARDIOVASCULAR: Denies chest pain, palpitations, orthopnea, edema GASTROINTESTINAL: Denies nausea, vomiting, abdominal pain, diarrhea, constipation, melena. : Denies dysuria, frequency, incontinence, hematuria, urinary retention, flank pain. MUSCULOSKELETAL: Denies weakness, joint pain, or bony pain SKIN: No rash, no erythema, no pruritus NEUROLOGIC: See HPI PSYCHIATRIC: No concerning psychosocial issues. 12 point review of systems is negative except for those stated above and HPI Patient History Medical History Encounter for IUD removal Healthy female Hypercholesterolemia (spontaneous vaginal delivery) Surgical History [place] teeth extracted (~2019) Family History Grandmother Hypertension Cancer Mother Hyperlipidemia Father Unknown whether patient has any health problems Family estrangement Grandfather Meniere disease Family/Other Throat cancer Social History marital status: number of children: 3 household members: spouse and children pets and animals: Yes education level: high school (some HS) occupational status: employed current occupational exposures/hazards: No Previous occupational history: House Keeping special bulmaro needs: No Smoking Status: Never smoker second hand exposure: No alcohol intake: former (pre- : social) substance use type: does not use Smoking Status: Never smoker alcohol intake frequency: 0-2 drinks per day Substance Use Type: does not use Exam Initial Vital Signs Initial Vital Signs: Vital Signs Temperature 97.0 F L 03/07/22 21:34 Pulse Rate 97 H 03/07/22 21:34 Respiratory Rate 20 03/07/22 21:34 Blood Pressure 141/81 H 03/07/22 21:34 Pulse Oximetry 98 03/07/22 21:34 Oxygen Delivery Method 03/07/22 21:34 GENERAL: Alert pleasant 31-year-old female and in no acute distress. HEENT: Head atraumatic,EOMI, pupils reactive, face symmetric, moist mucous membranes CARDIOVASCULAR: Regular rate and rhythm 2/6 murmur systolic RESPIRATORY: Breath sounds equal bilaterally, no wheezes rales or rhonchi. ABDOMEN: Soft, nontender. Normoactive bowel sounds all 4 quadrants. No guarding or rebound. EXTREMITIES: Normal range of motion, no clubbing or edema. Neurovascularly intact NEUROLOGICAL: Alert and oriented x4.Normal gait and speech. Cranial nerves II through XII grossly intact. Good [id number], good [id number], strength equal bilaterally, no dysarthria or aphasia, sensation in tact to soft touch bilaterally, no visual changes, no facial droop SKIN: Warm, dry, no laceration, no petechiae, no rashes or lesions. Course Orders Ordered: ED Orders 03/08/22 03:58 EKG-12 Lead Stat Vital Signs Vital signs: Vital Signs - 8 hr 03/08/22 03:17 03/08/22 04:34 Pulse Rate 80 79 Respiratory Rate 20 16 Blood Pressure 125/80 128/78 Pulse Oximetry 98 100 Oxygen Delivery Method Room Air Room Air MDM - Recheck/Abnormal Lab/Rx Lab Data Result diagrams: 03/07/22 21:50 03/07/22 21:50 Labs: Lab Results 03/07/22 03/07/22 Range/Units 21:50 21:50 WBC 9.0 (4.5-11.0) X10^3/uL RBC 4.53 (4.0-5.2) X10^6/uL Hgb 11.7 L (12.0-16.0) g/dL Hct 35.2 L (36-46) % MCV 77.7 L (80-100) fL MCH 25.8 L (26-34) PG MCHC 33.1 (30-36) % RDW 14.5 (11.6-14.8) % Plt Count 247 (150-400) X10^3/uL Neut % (Auto) 68.3 (50-75) % Lymph % (Auto) 25.3 (25-40) % Chaves % (Auto) 4.5 (3-14) % Eos % (Auto) 1.5 L (2-4) % Baso % (Auto) 0.4 (0-2) % Neut # (Auto) 6200 (9664-5995) /uL Lymph # (Auto) 2300 (4359-6854) /uL Chaves # (Auto) 400 (0-900) /uL Eos # (Auto) 100 (0-450) /uL Baso # (Auto) 0 (0-100) /uL Sodium 137 (137-145) mmol/L Potassium 3.5 (3.4-5.1) mmol/L Chloride 104 (98-107) mmol/L Carbon Dioxide 21 L (22-32) mmol/L BUN 13 (7-17) mg/dL Creatinine 0.53 (0.52-1.04) mg/dL Estimated GFR > 60 (>60) mL/min BUN/Creatinine Ratio 24.5 H (6-22) Glucose 177 H (70-100) mg/dL Calcium 9.4 (8.4-10.2) mg/dL Total Bilirubin 0.2 (0.2-1.3) mg/dL AST 19 (14-36) IU/L ALT 24 (<35) IU/L Alkaline Phosphatase 90 (38-126) U/L Total Protein 8.9 H (6.3-8.2) g/dL Albumin 4.6 (3.5-5.0) g/dL Globulin 4.3 H (1.7-4.1) g/dL Albumin/Globulin Ratio 1.1 (1.0-2.8) ECG Data Interpretation: Normal sinus rhythm rate 90 p.r. interval 148 QRS [address] changes no T- wave inversion MDM Narrative Medical decision making narrative: Patient's vitals have been stable while in the emergency department. Her blood work actually has improved previously she had a hemoglobin 11.4 and hematocrit 34.4 in June she had 1 hemoglobin test today at 7.4 however couple hours later it was 11.7 and 35 probably a lab error. She is anemic. She is having heavy menstrual cycles that are not seem to be excessive now. She is not passing out. She is overall feeling much better after being in the emergency department for number of hours. At this time recommend outpatient follow it and repeat blood work. Discharge Plan Departure Patient Disposition: Home Clinical Impression: Dizziness Instructions: DI for Dizziness-Nonvertigo Activity Restrictions/Additional Instructions: *You have been diagnosed with dizziness *What to do: Your hemoglobin today is 11.7. Please have it rechecked in a couple of days. You will also need a pelvic ultrasound to check out your uterus and menstrual cycles. Continue to stay hydrated You also need an echocardiogram because you are found to have very slight murmur *Continue to take medications as directed *Follow up with your primary care provider in 2-3 days or call [phone] *Return to ER if you should have increasing dizziness lightheadedness, heavy vaginal bleeding more than 2 pads in 1 hour or any new, worsening or concerning symptoms Referrals: Lianet eBnítez PA-C [Primary Care Provider] - Visit Report Forms: Patient Portal/API
[2022-03-08 04:34] VITALS: BP 128/78; PULSE 79; RESP 16; O2SAT 100
== END 2022-03-08 04:36 | disposition home or self-care (01) ==
PROVIDERS: Emergency Provider Emergency Medicine; Family Provider Family Medicine; PCP Physician Assistant
DX: R42 Dizziness and giddiness (principal); R79.89 Other specified abnormal findings of blood chemistry
CPT/HCPCS: 80053; 85018; 85025; 93005; 99281; 99284

== ENCOUNTER → 2022-03-13 07:44 | Outpatient (CLI) | payer OTHER, MEDICAID, SELFPAY | PROVIDERS: Family Provider Family Medicine; PCP Physician Assistant; Referring Provider Nurse Practitioner Adult Health; Visit Provider Nurse Practitioner Adult Health | DX: Z11.3 Encounter for screening for infections with a predominantly sexual mode of transmission (principal) | CPT/HCPCS: 87491; 87591; 87661 ==

== ENCOUNTER → 2022-03-14 13:39 | Outpatient (CLI) | payer OTHER, MEDICAID, SELFPAY ==
[2022-03-14 19:30] LABS: Add Manual Diff / Slide Review NO; Basophils Absolute Auto 0 /uL (0-100); Basophils Percent Auto 0.5 % (0-2); Eosinophils Absolute Auto 200 /uL (0-450); Eosinophils Percent Auto 2.2 % (2-4); Hematocrit 32.8 % (36-46); Hemoglobin 10.9 g/dL (12.0-16.0); Lymphocytes Absolute Auto 2200 /uL (1100-4500); Lymphocytes Percent Auto 29.1 % (25-40); Mean Corpuscular HGB Conc 33.2 % (30-36); Mean Corpuscular Hemoglobin 25.6 PG (26-34); Mean Corpuscular Volume 77.3 fL (80-100); Monocytes Absolute Auto 600 /uL (0-900); Monocytes Percent Auto 8.1 % (3-14); Neutrophils Absolute Auto 4500 /uL (1500-7000); Neutrophils Percent Auto 60.1 % (50-75); Platelet Count 259 X10^3/uL (150-400); Red Blood Cell Count 4.25 X10^6/uL (4.0-5.2); Red Cell Distribution Width 14.5 % (11.6-14.8); White Blood Cell Count 7.4 X10^3/uL (4.5-11.0)
== END ==
PROVIDERS: Family Provider Family Medicine; PCP Physician Assistant; Visit Provider Physician Assistant
DX: E78.00 Pure hypercholesterolemia, unspecified (principal)
CPT/HCPCS: 85025

== ENCOUNTER → 2022-03-15 09:08 | Outpatient (CLI) | payer OTHER, MEDICAID, SELFPAY ==
[2022-03-15 20:53] LABS: Cholesterol 242 mg/dL (140-199); HDL Cholesterol 38 mg/dL (40-60); Triglycerides 453 mg/dL (35-150)
== END ==
PROVIDERS: Family Provider Family Medicine; PCP Physician Assistant; Visit Provider Physician Assistant
DX: E78.00 Pure hypercholesterolemia, unspecified (principal)
CPT/HCPCS: 80061

== ENCOUNTER → 2022-07-19 10:25 | Outpatient (CLI) | payer OTHER, MEDICAID, SELFPAY ==
[2022-07-19 10:53] LABS: Add Manual Diff / Slide Review NO; Basophils Absolute Auto 0 /uL (0-100); Basophils Percent Auto 0.4 % (0-2); Eosinophils Absolute Auto 100 /uL (0-450); Eosinophils Percent Auto 1.9 % (2-4); Hematocrit 36.3 % (36-46); Hemoglobin 11.7 g/dL (12.0-16.0); Lymphocytes Absolute Auto 2600 /uL (1100-4500); Lymphocytes Percent Auto 33.7 % (25-40); Mean Corpuscular HGB Conc 32.4 % (30-36); Mean Corpuscular Hemoglobin 25.6 PG (26-34); Monocytes Absolute Auto 400 /uL (0-900); Monocytes Percent Auto 5.2 % (3-14); Neutrophils Absolute Auto 4600 /uL (1500-7000); Neutrophils Percent Auto 58.8 % (50-75); Platelet Count 267 X10^3/uL (150-400); Red Blood Cell Count 4.59 X10^6/uL (4.0-5.2); Red Cell Distribution Width 14.4 % (11.6-14.8); White Blood Cell Count 7.9 X10^3/uL (4.5-11.0)
[2022-07-19 11:06] LABS: Appearance Urine UA CLEAR; Bilirubin Urine UA NEGATIVE (NEGATIVE); Color Urine UA YELLOW; Glucose Urine UA NEGATIVE (Negative); Ketones Urine UA NEGATIVE (NEGATIVE); Leukocyte Esterase Urine UA NEGATIVE (NEGATIVE); Nitrite Urine UA NEGATIVE (Negative); Occult Blood Urine UA 1+ (Negative); Protein Urine UA NEGATIVE (Negative); Specific Gravity Urine UA 1.025 (1.000-1.035); Urobilinogen Urine UA 0.2 E.U./dL (0.2)
[2022-07-19 11:07] LABS: Hemoglobin A1C% w Est Avg Glu 6.4 % (4.0-6.0)
[2022-07-19 11:18] LABS: HEMOLYSIS < 15 (0-50); Iron 138 ug/dL (37-170)
[2022-07-19 11:24] LABS: pH Urine UA 5.5 (4.5-8.0)
[2022-07-19 11:25] LABS: Bacteria Urine None Seen; Culture Indicated Urine Cult Not Indicated; RBC Urine 1-5/HPF (0-5/HPF); WBC Urine None Seen (0-5/HPF)
[2022-07-19 11:26] LABS: Alanine Aminotransferase 23 IU/L (<35); Albumin 4.4 g/dL (3.5-5.0); Albumin Globulin Ratio 1.1 (1.0-2.8); Alkaline Phosphatase 88 U/L (38-126); Aspartate Aminotransferase 21 IU/L (14-36); BUN Creatinine Ratio 31.3 (6-22); Bilirubin Total 0.3 mg/dL (0.2-1.3); Blood Urea Nitrogen 15 mg/dL (7-17); Calcium 8.7 mg/dL (8.4-10.2); Carbon Dioxide 25 mmol/L (22-32); Chloride 102 mmol/L (98-107); Cholesterol 235 mg/dL (140-199); Estimated Glomerular Filt Rate > 60 mL/min (>60); Globulin 4.1 g/dL (1.7-4.1); Glucose 113 mg/dL (70-100); HDL Cholesterol 51 mg/dL (40-60); HEMOLYSIS < 15 (0-50); Sodium 138 mmol/L (137-145); Total Protein 8.5 g/dL (6.3-8.2); Triglycerides 429 mg/dL (35-150)
[2022-07-19 11:28] LABS: Percent Iron Saturation 36 % (15-50); Total Iron Binding Capacity 380 ug/dL (265-497); Transferrin 310 mg/dL (206-381)
[2022-07-19 11:36] LABS: HCG Quantitative /Beta subunit < 2.4 mIU/mL
[2022-07-19 11:49] LABS: TSH w/ Reflex to FT4 3.42 uIU/mL (0.47-4.68)
[2022-07-19 11:54] LABS: Ferritin 57 ng/mL (6-137)
[2022-07-19 20:54] LABS: Pregnancy Test Serum,Qual Negative (Negative)
[2022-07-20 03:44] LABS: Hepatitis B Core AB w/Reflex Negative (Negative)
[2022-07-20 09:14] LABS: Hepatitis A Ab IgM Negative (Negative); Hepatitis A Ab Total Positive (Negative)
[2022-07-20 15:56] LABS: HIV 1 & 2 Ab/Ag 4th Gen Combo NEGATIVE (NEGATIVE); Hep C Virus Ab w/Reflex Quant NEGATIVE s/c (NEGATIVE); Hepatitis B Surface Antigen NEGATIVE s/c (NEGATIVE)
== END ==
PROVIDERS: Family Provider Family Medicine; PCP Physician Assistant; Referring Provider Physician Assistant; Visit Provider Physician Assistant
DX: Z01.818 Encounter for other preprocedural examination (principal); E78.00 Pure hypercholesterolemia, unspecified; Z11.3 Encounter for screening for infections with a predominantly sexual mode of transmission; Z83.3 Family history of diabetes mellitus; Z86.2 Personal history of diseases of the blood and blood-forming organs and certain disorders involving the immune mechanism; D64.9 Anemia, unspecified
CPT/HCPCS: 36415; 80053; 80061; 81001; 82728; 83036; 83540; 83550; 84443; 84702; 84703; 85025; 85610; 86704; 86708; 86803; 87340; 87389

== ENCOUNTER → 2024-06-13 08:53 | Outpatient (CLI) | payer SELFPAY ==
[2024-06-13 18:52] LABS: Add Manual Diff / Slide Review NO; Basophils Absolute Auto 0 /uL (0-100); Basophils Percent Auto 0.6 % (0-2); Eosinophils Absolute Auto 100 /uL (0-450); Eosinophils Percent Auto 1.6 % (2-4); Hematocrit 38.4 % (36-46); Hemoglobin 12.6 g/dL (12.0-16.0); Lymphocytes Absolute Auto 2500 /uL (1100-4500); Lymphocytes Percent Auto 41.4 % (25-40); Mean Corpuscular Hemoglobin 26.5 PG (26-34); Mean Corpuscular Volume 80.5 fL (80-100); Monocytes Absolute Auto 400 /uL (0-900); Monocytes Percent Auto 6.1 % (3-14); Neutrophils Absolute Auto 3000 /uL (1500-7000); Neutrophils Percent Auto 50.3 % (50-75); Platelet Count 254 X10^3/uL (150-400); Red Blood Cell Count 4.77 X10^6/uL (4.0-5.2); Red Cell Distribution Width 13.9 % (11.6-14.8); White Blood Cell Count 6.1 X10^3/uL (4.5-11.0)
[2024-06-13 19:17] LABS: Erythrocyte Sedimentation Rate 39 MM/HR (0-20)
[2024-06-13 19:23] LABS: Alanine Aminotransferase 29 IU/L (<35); Albumin 4.9 g/dL (3.5-5.0); Albumin Globulin Ratio 1.2 (1.0-2.8); Alkaline Phosphatase 89 U/L (38-126); Aspartate Aminotransferase 29 IU/L (14-36); BUN Creatinine Ratio 29.5 (6-22); Bilirubin Total 0.5 mg/dL (0.2-1.3); Blood Urea Nitrogen 18 mg/dL (7-17); C-Reactive Protein Quant < 0.5 mg/dL (<1.0); Calcium 9.6 mg/dL (8.4-10.2); Carbon Dioxide 24 mmol/L (22-32); Chloride 102 mmol/L (98-107); Creatine Kinase 116 U/L (30-135); Estimated Glomerular Filt Rate > 60 mL/min (>60); Glucose 105 mg/dL (70-100); HDL Cholesterol 45 mg/dL (40-60); HEMOLYSIS < 15 (0-50); Potassium 4.1 mmol/L (3.4-5.1); Rheumatoid Factor 8.7 IU/mL (<12.0); Sodium 136 mmol/L (137-145); Total Protein 8.9 g/dL (6.3-8.2)
[2024-06-13 19:29] LABS: Triglycerides 566 mg/dL (35-150)
[2024-06-13 19:32] LABS: Cholesterol 415 mg/dL (140-199)
[2024-06-13 19:41] LABS: Hemoglobin A1C% w Est Avg Glu 5.6 % (4.0-6.0)
[2024-06-13 19:50] LABS: Thyroid Stimulating Hormone 3.69 uIU/mL (0.47-4.68)
[2024-06-13 19:58] LABS: Ferritin 111 ng/mL (6-137)
[2024-06-13 20:26] LABS: Folate 8.3 ng/mL (2.76-20.0); Vitamin B12 708 pg/mL (239-931)
== END ==
PROVIDERS: Family Provider Family Medicine; PCP Family Medicine; Visit Provider Family Medicine
DX: E78.00 Pure hypercholesterolemia, unspecified (principal); R73.03 Prediabetes; D64.9 Anemia, unspecified; M25.50 Pain in unspecified joint; R20.0 Anesthesia of skin
CPT/HCPCS: 80053; 80061; 82550; 82607; 82728; 82746; 83036; 84443; 85025; 85651; 86038; 86140; 86200; 86430